=== PATIENT | female | born 1935 | race Caucasian/White ===

== ENCOUNTER → 2019-10-16 | Outpatient (CLI) | payer MEDICARE, BC ==
[2019-10-16 10:02] LABS: EOS # 0.4 (0.04-0.40); HEMATOCRIT 41.3 % (37.0-47.0); HEMOGLOBIN 12.9 g/dL (12.5-16.0); LYMPH# 2.3 (1.50-4.00); MEAN CELL VOLUME 95 fl (78-100); MEAN CORPUSCULAR HEMOGLOBIN 30 pg (27-31); MEAN CORPUSCULAR HGB CONC 31 g/dL (33-37); MEAN PLATELET VOLUME 11.7 fl (7.4-10.4); MONO # 0.6 (0.20-0.80); NEU # 2.9 (1.40-6.50); PLATELET COUNT 248 K/mm3 (130-400); RED BLOOD COUNT 4.33 M/mm3 (4.10-5.30); RED CELL DISTRIBUTION WIDTH 14.2 % (11.5-14.5); WHITE BLOOD COUNT 6.2 K/mm3 (4.8-10.8)
[2019-10-16 10:55] LABS: ALBUMIN 4.1 g/dL (3.4-4.8); POTASSIUM 4.3 mmol/L (3.5-5.1)
[2019-10-16 10:56] LABS: CALCIUM 9.7 mg/dL (8.3-10.5)
[2019-10-16 10:58] LABS: TOTAL PROTEIN 6.8 g/dL (6.2-8.1)
[2019-10-16 11:00] LABS: TOTAL BILIRUBIN 0.4 mg/dL (0.2-1.2)
== END ==
LOC: LAB 09:45
PROVIDERS: Family Medicine
DX: I10 Essential (primary) hypertension (principal)

== ENCOUNTER → 2021-02-16 | Outpatient (CLI) | payer MEDICARE, BC ==
[2021-02-16 09:28] LABS: BASO # 0.05 (0.02-0.10); EOS # 0.54 (0.04-0.40); EOS % 8.6 % (1.0-5.0); HEMATOCRIT 36.5 % (37.0-47.0); LYMPH# 2.48 (1.50-4.00); MEAN CELL VOLUME 94 fl (78-100); MEAN CORPUSCULAR HEMOGLOBIN 31 pg (27-31); MEAN CORPUSCULAR HGB CONC 33 g/dL (33-37); MEAN PLATELET VOLUME 11.5 fl (7.4-10.4); MONO # 0.65 (0.20-0.80); NEU # 2.52 (1.40-6.50); PLATELET COUNT 201 K/mm3 (130-400); RED BLOOD COUNT 3.87 M/mm3 (4.10-5.30); RED CELL DISTRIBUTION WIDTH 13.1 % (11.5-14.5); WHITE BLOOD COUNT 6.3 K/mm3 (4.8-10.8)
[2021-02-16 09:36] LABS: POTASSIUM 4.1 mmol/L (3.5-5.1)
[2021-02-16 09:37] LABS: ALBUMIN 3.7 g/dL (3.4-4.8)
[2021-02-16 09:38] LABS: CALCIUM 9.2 mg/dL (8.3-10.5)
[2021-02-16 09:39] LABS: TOTAL PROTEIN 6.6 g/dL (6.2-8.1)
[2021-02-16 09:41] LABS: TOTAL BILIRUBIN 0.7 mg/dL (0.2-1.2)
== END ==
LOC: LAB 08:58
PROVIDERS: Family Medicine
DX: Z00.00 Encounter for general adult medical examination without abnormal findings (principal); E78.5 Hyperlipidemia, unspecified

== ENCOUNTER 2021-12-26 09:31 | Observation (INO) | payer MEDICARE, BC ==
[~2021-12-26] VITALS: Ht 167.6 cm; Wt 75.4 kg
[2021-12-26 11:07] LABS: BASO # 0.06 K/mm3 (0.02-0.10); EOS # 0.58 K/mm3 (0.04-0.40); EOS % 6.6 % (1.0-5.0); HEMATOCRIT 35.6 % (37.0-47.0); HEMOGLOBIN 11.2 g/dL (12.5-16.0); LYMPH# 1.66 K/mm3 (1.50-4.00); MEAN CELL VOLUME 99 fl (78-100); MEAN CORPUSCULAR HEMOGLOBIN 31 pg (27-31); MEAN CORPUSCULAR HGB CONC 32 g/dL (33-37); MEAN PLATELET VOLUME 11.8 fl (7.4-10.4); MONO # 0.83 K/mm3 (0.20-0.80); NEU # 5.63 K/mm3 (1.40-6.50); PLATELET COUNT 201 K/mm3 (130-400); RED CELL DISTRIBUTION WIDTH 13.5 % (11.5-14.5); WHITE BLOOD COUNT 8.8 K/mm3 (4.8-10.8)
[2021-12-26 11:11] LABS: ALBUMIN 3.5 g/dL (3.4-4.8)
[2021-12-26 11:12] LABS: POTASSIUM 4.7 mmol/L (3.5-5.1)
[2021-12-26 11:13] LABS: CALCIUM 9.1 mg/dL (8.3-10.5)
[2021-12-26 11:14] LABS: TOTAL PROTEIN 6.3 g/dL (6.2-8.1)
[2021-12-26 11:16] LABS: TOTAL BILIRUBIN 0.6 mg/dL (0.2-1.2)
[2021-12-26 13:49] LABS: D-DIMER 6.32 mg/L FEU (0.15-0.50)
[2021-12-26] MEDS ORDERED: ALBUTEROL1.25 MG/3 IH (13:50)
[2021-12-26 17:40] VITALS: BP 126/62
[2021-12-26 21:14] VITALS: BP 121/49
[2021-12-27 02:08] VITALS: BP 109/57
[2021-12-27 06:06] VITALS: BP 122/67
[2021-12-27 07:24] LABS: URINE WBC 0 /hpf (0-3)
[2021-12-27 08:34] LABS: URINE APPEARANCE HAZY; URINE COLOR YELLOW
[2021-12-27 08:35] LABS: URINE BILIRUBIN NEGATIVE (NEGATIVE); URINE BLOOD NEGATIVE (NEGATIVE); URINE GLUCOSE NEGATIVE (NEGATIVE); URINE KETONE NEGATIVE (NEGATIVE); URINE LEUKOCYTE ESTERASE NEGATIVE (NEGATIVE); URINE NITRATE NEGATIVE (NEGATIVE); URINE PROTEIN(semi-quant) NEGATIVE (NEGATIVE); URINE UROBILINOGEN NORMAL (NORMAL)
[2021-12-27 10:04] VITALS: BP 114/65
[2021-12-27 13:59] VITALS: BP 108/53
[2021-12-27] MEDS ORDERED: PERCOCET 325 MG1 TA2 PO ×2 (16:01→16:15)
[2021-12-27] MEDS ORDERED: ELIQUIS5 MG PO (16:04)
== END 2021-12-27 16:50 | disposition home or self-care (01) ==
LOC: ED 09:31 → MED/SURG 14:39
PROVIDERS: ADMIT Family Medicine
DX: I26.99 Other pulmonary embolism without acute cor pulmonale (principal); R07.9 Chest pain, unspecified; Z20.822 Contact with and (suspected) exposure to COVID-19
CPT/HCPCS: G0378; J3010; Q9967

== ENCOUNTER → 2022-03-01 | Outpatient (CLI) | payer MEDICARE, BC ==
[~2022-03-01] MED LIST: ALBUTEROL1.25 MG/3 IH; ELIQUIS5 MG PO; PERCOCET 325 MG1 TA2 PO
[2022-03-01 12:22] LABS: ALBUMIN 4.1 g/dL (3.4-4.8); POTASSIUM 4.2 mmol/L (3.5-5.1)
[2022-03-01 12:25] LABS: TOTAL PROTEIN 7.1 g/dL (6.2-8.1)
[2022-03-01 12:26] LABS: TOTAL BILIRUBIN 0.7 mg/dL (0.2-1.2)
[2022-03-01 12:38] LABS: BASO # 0.05 K/mm3 (0.02-0.10); EOS # 0.36 K/mm3 (0.04-0.40); EOS % 5.5 % (1.0-5.0); HEMATOCRIT 40.8 % (37.0-47.0); HEMOGLOBIN 13.1 g/dL (12.5-16.0); LYMPH# 2.57 K/mm3 (1.50-4.00); MEAN CELL VOLUME 95 fl (78-100); MEAN CORPUSCULAR HEMOGLOBIN 31 pg (27-31); MEAN CORPUSCULAR HGB CONC 32 g/dL (33-37); MEAN PLATELET VOLUME 12.9 fl (7.4-10.4); MONO # 0.62 K/mm3 (0.20-0.80); NEU # 2.96 K/mm3 (1.40-6.50); PLATELET COUNT 167 K/mm3 (130-400); RED BLOOD COUNT 4.28 M/mm3 (4.10-5.30); RED CELL DISTRIBUTION WIDTH 13.4 % (11.5-14.5); WHITE BLOOD COUNT 6.6 K/mm3 (4.8-10.8)
== END ==
LOC: LAB 11:38
PROVIDERS: Family Medicine
DX: Z00.00 Encounter for general adult medical examination without abnormal findings (principal); I15.8 Other secondary hypertension; E78.5 Hyperlipidemia, unspecified; J45.20 Mild intermittent asthma, uncomplicated; I26.99 Other pulmonary embolism without acute cor pulmonale

== ENCOUNTER → 2022-08-10 | Outpatient (CLI) | payer MEDICARE, BC | LOC: RAD 09:50 | DX: R05.9 Cough, unspecified (principal) ==

== ENCOUNTER → 2022-08-25 | Outpatient (CLI) | payer MEDICARE, BC ==
[2022-08-25 19:52] LABS: D-DIMER 0.31 mg/L FEU (0.15-0.50)
[2022-08-28 06:28] LABS: ALTERNARIA TENUIS CNT <0.10 kU/L (()); ASPERGILLUS FUMIGATUS AL COUNT <0.10 kU/L (()); BERMUDA GRASS ALLERGEN COUNT 0.16 kU/L (()); BOX ELDER-MAPLE ALLERGEN COUNT <0.10 kU/L (()); CAT DANDER ALLERGEN COUNT 0.23 kU/L (()); CLADOSPORIUM ALLERGEN COUNT <0.10 kU/L (()); COTTONWOOD TREE ALLERGEN COUNT 0.13 kU/L (()); DOG DANDER ALLERGEN COUNT 0.26 kU/L (()); DUST MITES (D.F.) ALLERG COUNT 0.22 kU/L (()); DUST MITES (D.P.) ALLERG COUNT 0.24 kU/L (()); ELM TREE ALLERGEN COUNT <0.10 kU/L (()); FIREBUSH ALLERGEN COUNT 0.13 kU/L (()); OAK ALLERGEN COUNT <0.10 kU/L (()); RUSSIAN THISTLE ALLERGEN COUNT <0.10 kU/L (()); SHORT RAGWEED ALLERGEN COUNT 0.14 kU/L (())
== END ==
LOC: LAB 17:09
PROVIDERS: Nurse Practitioner
DX: R05.3 Chronic cough (principal)

== ENCOUNTER → 2022-08-27 | Outpatient (CLI) | payer MEDICARE, BC | LOC: RAD 09:32 | DX: R05.3 Chronic cough (principal) ==

== ENCOUNTER → 2023-08-25 | Outpatient (CLI) | payer MEDICARE, BC ==
[2023-08-25 11:07] LABS: PARTIAL THROMBOPLASTIN TIME 20.8 SECONDS (21.0-32.0); PROTHROMBIN TIME 10.3 SECONDS (9.0-12.0)
[2023-08-25 23:03] LABS: FACTOR V LEIDEN MUTATION B Negative (Negative)
[2023-08-26 05:28] LABS: HOMOCYSTEINE SERUM OR PLASMA 15.8 umol/L (0.0-15.4)
[2023-08-26 09:32] LABS: ANTI-THROMBIN III 149 % (72-128)
== END ==
LOC: LAB 09:45
PROVIDERS: Internal Medicine Interventional Cardiology
DX: Z86.718 Personal history of other venous thrombosis and embolism (principal)

== ENCOUNTER → 2024-03-22 | Outpatient (CLI) | payer MEDICARE, BC ==
[2024-03-22 16:55] LABS: PH-URINE 6.5 (5.0 - 8.0); URINE APPEARANCE CLEAR (CLEAR); URINE BILIRUBIN NEGATIVE (NEGATIVE); URINE BLOOD NEGATIVE (NEGATIVE); URINE COLOR YELLOW (YELLOW); URINE GLUCOSE NEGATIVE (NEGATIVE); URINE KETONE NEGATIVE (NEGATIVE); URINE LEUKOCYTE ESTERASE NEGATIVE (NEGATIVE); URINE NITRATE NEGATIVE (NEGATIVE); URINE PROTEIN(semi-quant) NEGATIVE (NEGATIVE); URINE WBC 0-1 /hpf (0-3)
== END ==
LOC: LAB 15:20
PROVIDERS: Nurse Practitioner
DX: R82.998 Other abnormal findings in urine (principal)

== ENCOUNTER → 2024-06-29 | Outpatient (CLI) | payer MEDICARE, BC | LOC: LAB 09:43 | DX: R06.02 Shortness of breath (principal) ==